=== PATIENT | male | born 1940 | race Caucasian/White ===

== ENCOUNTER 2017-10-24 16:17 | Emergency (ER) | payer OTHER, MEDICARE ==
[2017-10-24 16:35] VITALS: TEMP 98; BMI 32.7
--- NOTE | 2017-10-24 16:53 | PDOC ---
History of Present Illness - General Chief Complaint: Lightheaded Stated Complaint: FATIGUE Time Seen by Provider: 10/24/17 16:49 - History of Present Illness Initial Comments: 10/24/17 16:52 77 yo M with h/o HTN, DM, A-fib w/ RvR, CAD, ND x 1, who p/w dizziness. Patient reports acute onset of "spinning sensation" beggining last night when getting up to go to the bathroom. Spinning not present at rest, and aggravated with movement. Reports similar history 2 months ago, but never "lasting this long." No identifiable alleviators. Patient referred to ED by jewel stringer. Recent MRI Brain (10/02/2017) with no pathology. Patient reports h/o hemorrhage vs. hematoma (2013) at [facility]. Denies shunt placement. Was managed medically in hospital for 4 days. Patient denies ANDERSON, tinnitus, hearing loss, ear pain, N/V, F,C, CP, SOB, urinary complaints, abdominal pain, diarrhea, constipation, weakness, sensory changes. PMHx: as noted above. ROS: as noted SHx: Tobacco cessation x 35 years ago. Social Etoh. Denies IVDA. Allergies: NKDA Past History - Past Medical History Allergies/Adverse Reactions: Allergies Allergy/AdvReac Type Severity Reaction Status Date / Time No Known Allergies Allergy Verified 10/24/17 16:35 Home Medications: Ambulatory Orders Meclizine HCl [Antivert -] 12.5 mg PO TID #21 tablet 10/24/17 Cardiac Disorders: Yes COPD: No - Suicide/Smoking/Psychosocial Hx Smoking History: Never smoked Have you smoked in the past 12 months: No Information on smoking cessation initiated: No Hx Alcohol Use: No Drug/Substance Use Hx: No Substance Use Type: None Review of Systems - Review of Systems Comments:: 10/24/17 16:52 GENERAL/CONSTITUTIONAL: No fever or chills. No weakness. HEAD, EYES, EARS, NOSE AND THROAT: No change in vision. No ear pain or discharge. No sore throat. CARDIOVASCULAR: No chest pain or shortness of breath RESPIRATORY: No cough, wheezing, or hemoptysis. GASTROINTESTINAL: No nausea, vomiting, diarrhea or constipation. GENITOURINARY: No dysuria, frequency, or change in urination. MUSCULOSKELETAL: No joint or muscle swelling or pain. No neck or back pain. SKIN: No rash NEUROLOGIC: + Vertigo. No headache, vertigo, loss of consciousness, or change in strength/sensation. ENDOCRINE: No increased thirst. No abnormal weight change HEMATOLOGIC/LYMPHATIC: No anemia, easy bleeding, or history of blood clots. ALLERGIC/IMMUNOLOGIC: No hives or skin allergy. *Physical Exam - Vital Signs Last Vital Signs Temp Pulse Resp BP Pulse Ox 98.0 F 58 L 16 118/68 100 10/24/17 16:34 10/24/17 16:34 10/24/17 16:34 10/24/17 16:34 10/24/17 16:34 - Physical Exam Comments: 10/24/17 16:53 GENERAL: Awake, alert, and fully oriented, in no acute distress HEAD: No signs of trauma, normocephalic, atraumatic EYES: PERRLA, EOMI, sclera anicteric, conjunctiva clear ENT: Auricles normal inspection, hearing grossly normal, nares patent, oropharynx clear without exudates. Moist mucosa NECK: Normal ROM, supple, no lymphadenopathy, JVD, or masses LUNGS: No distress, speaks full sentences, clear to auscultation bilaterally HEART: Regular rate and rhythm, normal S1 and S2, no murmurs, rubs or gallops, peripheral pulses normal and equal bilaterally. EXTREMITIES : Normal inspection, Normal range of motion, no edema. No clubbing or cyanosis. NEUROLOGICAL: Cranial nerves II through XII grossly intact. Normal speech, normal gait, no focal sensorimotor deficits. Normal JOSH. Absent dysmetria on FTN. SKIN: Warm, Dry, normal turgor, no rashes or lesions noted ED Treatment Course - LABORATORY CBC & Chemistry Diagram: 10/24/17 17:50 10/24/17 17:50 Medical Decision Making - Medical Decision Making 10/24/17 17:26 77 yo M with h/o HTN, DM, A-fib W/RvR, CAD, ND x 1, who p/w dizziness. VSS, AF. Absent nystagmus on physical exam or neuro deficits. Likely peripheral vs. central vertigo. Will consider BPPV. Low suspicion CVA/TIA. DDx: AOM, labrynthitis, Menieres dz. Will assess for electrolyte abnml, toxic or metabolic derangements, acid-base disturbance, or infection. ED Course: CBC,CMP, Cardiac Pr. EKG UA Meclizine 10/24/17 18:39 EKG: A-fib with PVC's, LAD, and LBBB. 10/24/17 18:42 CBC,CMP: Unremarkable 10/24/17 19:01 UA: Neg Patient stable for d/c with return precautions. Advised to f/u with neurology. Meclizine sent to pharmacy *DC/Admit/Observation/Transfer Diagnosis at time of Disposition: Vertigo - Discharge Dispostion Condition at time of disposition: Stable Decision to Admit order: No - Prescriptions Prescriptions: Meclizine HCl [Antivert -] 12.5 mg PO TID #21 tablet - Referrals Referrals: Michael Guillen MD [Staff Physician] - - Patient Instructions Printed Discharge Instructions: DI for Vertigo Additional Instructions: Please return to the emergency department with any new or worsening symptoms or concerns. Please follow up with your primary care physician within 72 hours. Please follow up with neurology within one week. Can take Meclizine as needed for dizziness. - Post Discharge Activity - Attestations Physician Attestion: 10/24/17 16:53 I attest to the information provided in this note.
[2017-10-24] MEDS ORDERED: MECLIZINE HCL 25 MG TABLET (FP) PO ONE (17:23)
[2017-10-24 18:00] LABS: BASO % 0.5 % (0-2.0); EOS % 2.2 % (0-4.5); HEMATOCRIT 46.7 % (35.4-49); HEMOGLOBIN 15.6 GM/dL (11.7-16.9); LYMPH % 41.9 % (8-40); MCH 32.7 pg (25.7-33.7); MCHC 33.4 g/dl (32.0-35.9); MEAN PLT VOLUME 9.7 fl (7.5-11.1); MONO % 12.4 % (3.8-10.2); PLATELET COUNT 266 K/MM3 (134-434); RBC 4.76 M/mm3 (4.00-5.60); RDW 13.9 % (11.9-15.9); WHITE BLOOD COUNT 10.9 K/mm3 (4.0-10.0)
[2017-10-24 18:09] LABS: INR 1.05 (0.82-1.09); PROTHROMBIN TIME (PATIENT) 11.9 SEC (9.7-13.0)
--- NOTE | 2017-10-24 18:16 | PDOC ---
Attending Attestation - HPI HPI: 10/24/17 18:20 The patient is a 77 year old male with a significant PMH of CAD, past NE, HTN, and diabetes who presents to the emergency department with dizziness beginning approximately last night. He states she got up to go to the bathroom when he felt a spinning sensation which is aggravated by movement and turning his head. The patient states he has had episodes of dizziness in the past which he was evaluated with an MRI for (no acute findings) but states it has never lasted as long as today. The patient denies taking any medication for his dizziness. The patient denies weakness or numbness. He denies headache or lightheadedness. He denies fevers or chills. He denies chest pain or shortness of breath. Allergies: NKA - Physicial Exam PE: 10/24/17 18:19 GENERAL: Awake, alert, and fully oriented, in no acute distress HEAD: No signs of trauma EYES: PERRLA, EOMI, sclera anicteric, conjunctiva clear. No nystagmus. ENT: Auricles normal inspection, hearing grossly normal, nares patent, oropharynx clear without exudates. Moist mucosa NECK: Normal ROM, supple, no lymphadenopathy, JVD, or masses. No bruits. LUNGS: Breath sounds equal, clear to auscultation bilaterally. No wheezes, and no crackles HEART: Regular rate and rhythm, normal S1 and S2, no murmurs, rubs or gallops ABDOMEN: Protuberant, soft, nontender, normoactive bowel sounds. No guarding, no rebound. No masses EXTREMITIES: Normal range of motion, no edema. No clubbing or cyanosis. No cords, erythema, or tenderness NEUROLOGICAL: Cranial nerves II through XII grossly intact. Normal speech, normal gait. No ataxia. SKIN: Warm, Dry, normal turgor, no rashes or lesions noted. <Vasquez Motley - Last Filed: 10/24/17 18:20> - Resident Resident Name: Vlad Gann - ED Attending Attestation I have performed the following: I have examined & evaluated the patient, The case was reviewed & discussed with the resident, I agree w/resident's findings & plan, Exceptions are as noted - HPI HPI: 10/24/17 18:16 77 yo male p/w positional dizziness, no trauma -no nausea,no vomiting, no gross focal neuro deficits, - Medical Decision Making 10/24/17 18:17 pt has brain MRI last month 10/02/17 that was unremarkable 10/24/17 19:37 pt labs reviewed pt;s symptoms resolved with meclizine IMP benign positional vertgo RX meclizine and discharged home <Lizzy Mcneil - Last Filed: 10/24/17 19:38>
[2017-10-24] MEDS ORDERED: MECLIZINE HCL 25 MG TABLET (FP) ONE (18:28)
[2017-10-24 18:33] LABS: ALBUMIN 3.3 g/dl (3.4-5.0); ALK PHOS 65 U/L (45-117); ANION GAP 8 (8-16); BLOOD UREA NITROGEN 16 mg/dL (7-18); CALCIUM 9.1 mg/dL (8.5-10.1); CHLORIDE 107 mmol/L (98-107); CO2 27 mmol/L (21-32); GLUCOSE,RANDOM 92 mg/dL (74-106); POTASSIUM 4.6 mmol/L (3.5-5.1); SGOT/AST 17 U/L (15-37); SGPT/ALT 23 U/L (12-78); SODIUM 142 mmol/L (136-145); TOT PROT 8.1 g/dl (6.4-8.2)
[2017-10-24 18:43] LABS: URINE APPEARANCE CLEAR; URINE BILIRUBIN NEGATIVE (<2.0 mg/dL); URINE COLOR STRAW; URINE GLUCOSE (UA) NEGATIVE (NEGATIVE); URINE KETONE NEGATIVE (NEGATIVE); URINE LEUK ESTERASE NEGATIVE (NEGATIVE); URINE NITRITE NEGATIVE (NEGATIVE); URINE PROTEIN NEGATIVE (NEGATIVE); URINE UROBILINOGEN NEGATIVE mg/dL (0.2-1.0)
[2017-10-24 19:31] VITALS: BP 123/74; PULSE 69
--- NOTE | 2017-10-25 11:32 | EKG ---
Test Reason : Blood Pressure : / mmHG Vent. Rate : 079 BPM Atrial Rate : 326 BPM P-R Int : 000 ms QRS Dur : 128 ms QT Int : 418 ms P-R-T Axes : 000 -36 126 degrees QTc Int : 479 ms ATRIAL FIBRILLATION WITH PREMATURE VENTRICULAR OR ABERRANTLY CONDUCTED COMPLEXES LEFT AXIS DEVIATION LEFT BUNDLE BRANCH BLOCK ABNORMAL ECG NO PREVIOUS ECGS AVAILABLE Confirmed by NEEMA SIMMS MD ([id number]) on 10/25/2017 11:32:06 AM Referred By: EVY Confirmed By:NEEMA SIMMS MD
== END 2017-10-24 20:04 | disposition home or self-care (01) ==
LOC: JER 16:17
DX: H81.10 Benign paroxysmal vertigo, unspecified ear (principal); I25.10 Atherosclerotic heart disease of native coronary artery without angina pectoris; I25.2 Old myocardial infarction; I10 Essential (primary) hypertension; I48.91 Unspecified atrial fibrillation; E11.9 Type 2 diabetes mellitus without complications
CPT/HCPCS: 36415; 80053; 81003; 81015; 82550; 84484; 85025; 85610; 93005; 93010; 99283-25